=== PATIENT | female | born 1965 | race Caucasian/White ===

== ENCOUNTER 2018-01-08 09:48 | Emergency (ER) | payer OTHER ==
[~2018-01-08] VITALS: Ht 167.6 cm; Wt 65.4 kg
[~2018-01-08 09:48] MED LIST: DIAZ2 PO; DIPH2%T PO; EPIP0.3I IM; PRED20 PO; RANI150 PO
[2018-01-08 09:53] VITALS: BP 141/71; PULSE 95; RESP 16; TEMP 97.8; O2SAT 94
[2018-01-08] MEDS ORDERED: SODIUM CHLOR 0.9% 1000 ML INJ 1,000 ML IV SCH (10:02)
[2018-01-08] MEDS ORDERED: PRED20 PO (10:12)
[2018-01-08] MEDS ORDERED: DIPH25CA PO (10:12)
[2018-01-08] MEDS ORDERED: FAMO1TAB37 PO (10:12)
--- NOTE | 2018-01-08 10:12 | PD ---
HPI Chief Complaint: Skin Problem Time Seen by Provider: 10:02 Travel History International Travel<30 days: No Contact w/Intl Traveler<30days: No History of Present Illness HPI 52-year-old female complains of rash involving the face neck upper extremities and trunk. She ate a new type of generic eggbeaters prior to onset of symptoms and wonders if potentially they could be related to it however denies any other potentially abnormal food or viral exposure. The patient continues that twice previously a similar type of her allergic reaction occurred also without known causative allergen. At home the patient ingested 2 tablets of Benadryl. The symptoms began about 45 minutes prior to ER arrival. No sensation of throat fullness. No shortness of breath. PFSH Past Medical History Cancer: Yes (SKIN) ?: Not Menopausal: Yes Tubal Ligation: Yes Social History Alcohol Use: Yes (OCC) Tobacco Use: Yes (1 PPD CIGARETTES) Substance Use: No Allergies-Medications (Allergen,Severity, Reaction): Coded Allergies: ibuprofen (Unverified Allergy, Intermediate, HIVES, 01/08/18) penicillin G (Unverified Allergy, Intermediate, HIVES, 01/08/18) Reported Meds & Prescriptions Reported Meds & Active Scripts Active Prednisone 20 Mg Tab 40 Mg PO DAILY 4 Days Take 40 mg (2 tablets) daily for 5 days Pepcid (Famotidine) 20 Mg Tab 20 Mg PO BID Diphenhydramine (Diphenhydramine HCl) 25 Mg Cap 25 Mg PO Q6H PRN Epipen (Epinephrine HCl) 0.3 Mg Inj 0.3 Mg IM ONCE GIVE IM IN THIGH, MAY REPEAT IF NEEDED Deltasone (Prednisone) 20 Mg Tab 60 Mg PO DAILY FOR 5 DAYS Zantac (Ranitidine HCl) 150 Mg Tab 150 Mg PO BID Benadryl (Diphenhydramine HCl) 25 Mg Cap 25 Mg PO TIDPRN Deltasone (Prednisone) 20 Mg Tab 60 Mg PO DAILY FOR 5 DAYS Zantac (Ranitidine HCl) 150 Mg Tab 150 Mg PO BID Benadryl (Diphenhydramine HCl) 25 Mg Cap 25 Mg PO TIDPRN Reported Valium (Diazepam) 2 Mg Tab 0 PO TODAY UNKNOWN DOSE Review of Systems General / Constitutional: No: Fever HENT: No: Sore Throat Respiratory: No: Shortness of Breath, Wheezing Skin: Positive Rash, Positive Itching Physical Exam Narrative GENERAL: Pleasant 52-year-old female no acute distress Vital Signs Date Time Temp Pulse Resp B/P (MAP) Pulse Ox O2 Delivery O2 Flow Rate FiO2 01/08/18 09:53 97.8 95 16 141/71 (94) 94 SKIN: Warm and dry. Urticarial lesions about the face trunk and extremities. HEAD: Normocephalic. EYES: No scleral icterus. No injection or drainage. NECK: Supple, trachea midline. No JVD or lymphadenopathy. CARDIOVASCULAR: Regular rate and rhythm without murmurs, gallops, or rubs. RESPIRATORY: Breath sounds equal bilaterally. No accessory muscle use. GASTROINTESTINAL: Abdomen soft, non-tender, nondistended. MUSCULOSKELETAL: No cyanosis, or edema. BACK: Nontender without obvious deformity. No CVA tenderness. Data Data Last Documented VS Vital Signs Date Time Temp Pulse Resp B/P (MAP) Pulse Ox O2 Delivery O2 Flow Rate FiO2 01/08/18 10:22 18 98 Room Air 01/08/18 09:53 97.8 95 141/71 (94) Orders Orders Ecg Monitoring (01/08/18 10:02) Iv Access Insert/Monitor (01/08/18 10:02) Oximetry (01/08/18 10:02) Methylprednisolone So Succ Inj (Solumedr (01/08/18 10:15) Famotidine Inj (Pepcid Inj) (01/08/18 10:15) Sodium Chlor 0.9% 1000 Ml Inj (Ns 1000 M (01/08/18 10:02) Sodium Chloride 0.9% Flush (Ns Flush) (01/08/18 10:15) Ed Discharge Order (01/08/18 12:15) [facility] Medical Decision Making Medical Screen Exam Complete: Yes Emergency Medical Condition: Yes Medical Record Reviewed: Yes Differential Diagnosis Anaphylaxis, angioedema, urticaria Narrative Course Solumedrol, pepcid and iv fluids given. Symptoms resolved at two hours. Pt ready for discharge. Scripts as below. Diagnosis Primary Impression: Allergic reaction Qualified Codes: T78.40XA - Allergy, unspecified, initial encounter Med/Other Pt SpecificInfo: Prescription(s) given Scripts Prednisone (Prednisone) 20 Mg Tab 40 MG PO DAILY for 4 Days, #8 TAB 0 Refills Take 40 mg (2 tablets) daily for 5 days Prov: Musa Soto MD 01/08/18 Famotidine (Pepcid) 20 Mg Tab 20 MG PO BID for Rash, #20 TAB 0 Refills Prov: Musa Soto MD 01/08/18 Diphenhydramine (Diphenhydramine) 25 Mg Cap 25 MG PO Q6H Y for ALLERGIES, #20 CAP 0 Refills Prov: Musa Soto MD 01/08/18 Disposition: 01 DISCHARGE HOME Condition: Stable Musa oSto MD Jan 08, 2018 10:12
[2018-01-08] MEDS ORDERED: methylPREDNISolone SOD SUCC 125 MG/2 ML VIAL IV PUSH ONE (10:15)
[2018-01-08] MEDS ORDERED: FAMOTIDINE 20 MG/2 ML VIAL IV PUSH ONE (10:15)
[2018-01-08] MEDS ORDERED: SODIUM CHLORIDE 0.9% FLUSH 10 ML FLUSH IV FLUSH PRN (10:15)
[2018-01-08 10:22] VITALS: RESP 18; O2SAT 98
== END 2018-01-08 12:29 | disposition home or self-care (01) ==
LOC: PHEFT 09:48
DX: T78.40XA Allergy, unspecified, initial encounter (principal); F17.210 Nicotine dependence, cigarettes, uncomplicated; Z85.828 Personal history of other malignant neoplasm of skin; Z88.0 Allergy status to penicillin; Z88.6 Allergy status to analgesic agent; Z79.899 Other long term (current) drug therapy
CPT/HCPCS: 96361; 96374; 96375; 99284; J2930; J7030